=== PATIENT | female | born 1955 | race Asian ===

== ENCOUNTER 2018-10-12 07:58 | Day surgery (SDC) | payer BC ==
[2018-10-05 12:59] VITALS: BMI 17.2
[2018-10-12 08:09] VITALS: TEMP 97.8
[2018-10-12] MEDS ORDERED: LIDOCAINE HCL/PF 2% SDV 5ML VIAL ONE (09:35)
[2018-10-12] MEDS ORDERED: PROPOFOL 20 ML ONE (09:35)
[2018-10-12 10:30] VITALS: BP 115/56; PULSE 61
== END 2018-10-12 10:40 | disposition home or self-care (01) ==
LOC: FASU-ENDO 07:58
PROVIDERS: ATTEND Internal Medicine Gastroenterology
PROC: 0DJD8ZZ Inspection of Lower Intestinal Tract, Via Natural or Artificial Opening Endoscopic (ICD-10-PCS; principal; 2018-10-12 09:37)
DX: Z86.010 Personal history of colon polyps (principal); Z80.0 Family history of malignant neoplasm of digestive organs

== ENCOUNTER 2024-01-31 08:30 | Day surgery (SDC) | payer OTHER, BC ==
[2024-01-31 08:50] VITALS: BMI 17.6
[2024-01-31 15:06] VITALS: TEMP 98
[2024-01-31 15:11] VITALS: BP 107/60; PULSE 59; RESP 18
== END 2024-01-31 10:15 | disposition home or self-care (01) ==
LOC: FASU-ENDO 08:30
PROVIDERS: ATTEND Internal Medicine Gastroenterology
PROC: 0DBL8ZX Excision of Transverse Colon, Via Natural or Artificial Opening Endoscopic, Diagnostic (ICD-10-PCS; principal; 2024-01-31 09:13)
DX: Z12.11 Encounter for screening for malignant neoplasm of colon (principal); D12.2 Benign neoplasm of ascending colon; K57.30 Diverticulosis of large intestine without perforation or abscess without bleeding; Z86.010 Personal history of colon polyps; Z80.0 Family history of malignant neoplasm of digestive organs; Z83.719 Family history of colon polyps, unspecified
CPT/HCPCS: 88305-TC